=== PATIENT | male | born 1960 | race Caucasian/White ===

== ENCOUNTER 2017-11-26 13:42 | Emergency (ER) | END 2017-11-26 18:21 | disposition home or self-care (01) ==

== ENCOUNTER 2017-12-02 20:48 | Inpatient (IN) | END 2017-12-05 17:50 | disposition home or self-care (01) | DRG 378 ==

== ENCOUNTER 2018-02-22 11:17 | Emergency (ER) | payer OTHER ==
[~2018-02-22] VITALS: Ht 167.6 cm; Wt 73.3 kg
[~2018-02-22 11:17] MED LIST: ALBU18HF INHALATION; AMLO2.5T78 PO; ATOR20TA38 PO; FER325 PO; GABA300C16 PO; GLIP10TA14 PO; OMEP20CA16 PO; PANT40TA3 PO; SITA50TA2 PO
[2018-02-22 11:23] VITALS: BP 135/85; PULSE 87; RESP 20; Ht 167.6 cm; Wt 73.3 kg
[2018-02-22] MEDS ORDERED: ALBU18HF INHALATION (15:26)
[2018-02-22] MEDS ORDERED: BECL10.6 IH (15:27)
--- NOTE | 2018-02-22 21:01 | ERD ---
ER Documentation Chief Complaint Chief Complaint Complains of a cough x 3 days ROS All systems reviewed and are negative except as per history of present illness. Medications Home Meds Active Scripts Beclomethasone Dipropionate (Qvar Redihaler (40 MCG)) 10.6 Gm Hfa.aeroba, 10.6 GM IH BID for cough/shortness of breath, #1 INH Prov:DIAN SANDOVAL DO 02/22/18 Albuterol Sulfate* (Ventolin HFA*) 18 Gm Hfa.aer.ad, 2 PUFF INHALATION Q4H PRN for prn, #1 INHALER Prov:DIAN SANDOVAL DO 02/22/18 Pantoprazole* (Protonix*) 40 Mg Tablet., 40 MG PO BID, #60 TAB Prov:JADIEL VILLANUEVA NP 12/05/17 Amlodipine Besylate* (Amlodipine Besylate*) 2.5 Mg Tablet, 2.5 MG PO DAILY, #30 TAB Prov:JADIEL VILLANUEVA NP 12/05/17 Sitagliptin* (Januvia*) 50 Mg Tablet, 50 MG PO DAILY, #30 TAB Prov:JADIEL VILLANUEVA EQUIPMENT ENGINEERING TECHNICIAN 12/05/17 Albuterol Sulfate* (Ventolin HFA*) 18 Gm Hfa.aer.ad, 2 PUFF INHALATION Q4H, #1 INHALER Prov:LEVY RUSHING MD 11/26/17 Reported Medications Omeprazole* (Omeprazole*) 20 Mg Capsule.dr, 20 MG PO DAILY 12/02/17 Gabapentin* (Gabapentin*) 300 Mg Capsule, 300 MG PO DAILY PRN for NOTE, #60 CAP neuropathy 11/26/17 Glipizide* (Glipizide*) 10 Mg Tablet, 10 MG PO AC BREAKFAST DINNER, TAB 11/26/17 Atorvastatin Calcium* (Atorvastatin Calcium*) 20 Mg Tablet, 20 MG PO QHS 11/26/17 Ferrous Sulfate* (Ferrous Sulfate*) 325 Mg Tabec, 325 MG PO DAILY, TAB 11/26/17 Allergies Allergies: Coded Allergies: No Known Allergy (Unverified , 11/26/17) PMhx/Soc History of Surgery: Yes (appendectomy, toe amputation, left knee replacement) Anesthesia Reaction: No Hx Neurological Disorder: No Hx Respiratory Disorders: Yes (chronic cough) Hx Cardiac Disorders: Yes (HTN, HLD,) Hx Psychiatric Problems: No Hx Miscellaneous Medical Probl: No Hx Alcohol Use: No Hx Substance Use: No Hx Tobacco Use: Yes Smoking Status: Current every day smoker Physical Exam Vitals Vital Signs Date Temp Pulse Resp B/P (MAP) Pulse Ox O2 O2 Flow FiO2 Time Delivery Rate 02/22/18 97.4 87 20 135/85 99 11:23 (102) Physical Exam Const: No acute distress Head: Atraumatic Eyes: Normal Conjunctiva ENT: Normal External Ears, Nose and Mouth. Neck: Full range of motion. No meningismus. Resp: Clear to auscultation bilaterally Cardio: Regular rate and rhythm, no murmurs Abd: Soft, non tender, non distended. Normal bowel sounds Skin: No petechiae or rashes Back: No midline or flank tenderness Ext: No cyanosis, or edema Neur: Awake and alert Psych: Normal Mood and Affect Result Diagram: 02/22/18 1422 02/22/18 1422 Results 24 hrs Laboratory Tests Test 02/22/18 14:22 White Blood Count 7.7 10^3/ul Red Blood Count 4.13 10^6/ul Hemoglobin 12.9 g/dl Hematocrit 39.1 % Mean Corpuscular Volume 94.7 fl Mean Corpuscular Hemoglobin 31.2 pg Mean Corpuscular Hemoglobin Concent 33.0 g/dl Red Cell Distribution Width 13.5 % Platelet Count 216 10^3/UL Mean Platelet Volume 11.0 fl Immature Granulocytes % 0.300 % Neutrophils % 59.5 % Lymphocytes % 27.0 % Monocytes % 9.9 % Eosinophils % 2.7 % Basophils % 0.6 % Nucleated Red Blood Cells % 0.0 /100WBC Immature Granulocytes # 0.020 10^3/ul Neutrophils # 4.6 10^3/ul Lymphocytes # 2.1 10^3/ul Monocytes # 0.8 10^3/ul Eosinophils # 0.2 10^3/ul Basophils # 0.1 10^3/ul Nucleated Red Blood Cells # 0.0 10^3/ul Sodium Level 139 mmol/L Potassium Level 5.2 mmol/L Chloride Level 108 mmol/L Carbon Dioxide Level 25 mmol/L Anion Gap 6 Blood Urea Nitrogen 23 mg/dl Creatinine 2.22 mg/dl Est Glomerular Filtrat Rate mL/min 30 mL/min Glucose Level 113 mg/dl Calcium Level 9.1 mg/dl Total Bilirubin 0.1 mg/dl Direct Bilirubin 0.00 mg/dl Indirect Bilirubin 0.1 mg/dl Aspartate Amino Transf (AST/SGOT) 27 IU/L Alanine Aminotransferase (ALT/SGPT) 12 IU/L Alkaline Phosphatase 128 IU/L Total Protein 8.0 g/dl Albumin 3.8 g/dl Globulin 4.20 g/dl Albumin/Globulin Ratio 0.90 Departure Diagnosis: Primary Impression: Cough Condition: Fair Patient Instructions: Cough, Chronic, Uncertain Cause, (Adult) Referrals: [facility] (PCP) Additional Instructions: Llame al doctor MAANA y veronica sandi ADENIKE PARA DENTRO DE 1-2 KOVACS.Dgale a la secretaria que nosotros le instruimos hacer esta adenike.Avise o llame si abreu condicin se empeora antes de la adenike. Regresa aqui si peor o no mejor. DIAN SANDOVAL DO Feb 22, 2018 21:01
== END 2018-02-22 15:31 | disposition home or self-care (01) ==
LOC: FTE 11:17
DX: R05 Cough (principal); I10 Essential (primary) hypertension; F17.210 Nicotine dependence, cigarettes, uncomplicated; Z79.84 Long term (current) use of oral hypoglycemic drugs; Z96.652 Presence of left artificial knee joint
CPT/HCPCS: 71046; 80053; 85025; Z7502

== ENCOUNTER 2018-06-12 18:49 | Emergency (ER) | payer OTHER ==
[~2018-06-12] VITALS: Ht 167.6 cm; Wt 75.2 kg
[~2018-06-12 18:49] MED LIST changes: +BECL10.6 IH
[2018-06-12 19:09] VITALS: BP 132/80; PULSE 100; RESP 16; Ht 167.6 cm; Wt 75.2 kg
[2018-06-12] MEDS ORDERED: KETOROLAC 30 MG INJ IM STA (23:11)
--- NOTE | 2018-06-12 23:18 | ERD ---
ER Documentation Chief Complaint Chief Complaint LOWER BACK X 4 DAYS HPI This is a 4-year-old male patient who presents to the emergency room with complaint of left lower lumbar pain that started 4 days ago and increased in intensity 2 days ago while carrying a 50 pound bag of fruit that he says the pain was so severe it brought him to his knee. Describes it as very sharp, nonradiating, no paresthesia, no difficulty with urination, history of diabetes. No prior history of back pain, ROS All systems reviewed and are negative except as per history of present illness. Medications Home Meds Active Scripts Cyclobenzaprine Hcl* (Cyclobenzaprine Hcl*) 10 Mg Tablet, 10 MG PO QHS, #10 TAB Prov:JAYLON ROBLERO NP 06/13/18 Ibuprofen* (Motrin*) 600 Mg Tab, 600 MG PO Q6 for back pain for 30 Days, #30 TAB Prov:JAYLON ROBLERO NP 06/13/18 Beclomethasone Dipropionate (Qvar Redihaler (40 MCG)) 10.6 Gm Hfa.aeroba, 10.6 GM IH BID for cough/shortness of breath, #1 INH Prov:DIAN SANDOVAL DO 02/22/18 Albuterol Sulfate* (Ventolin HFA*) 18 Gm Hfa.aer.ad, 2 PUFF INHALATION Q4H PRN for prn, #1 INHALER Prov:DIAN SANDOVAL DO 02/22/18 Pantoprazole* (Protonix*) 40 Mg Tablet., 40 MG PO BID, #60 TAB Prov:JADIEL VILLANUEVA NP 12/05/17 Amlodipine Besylate* (Amlodipine Besylate*) 2.5 Mg Tablet, 2.5 MG PO DAILY, #30 TAB Prov:JADIEL VILLANUEVA NP 12/05/17 Sitagliptin* (Januvia*) 50 Mg Tablet, 50 MG PO DAILY, #30 TAB Prov:JADIEL VILLANUEVA NP 12/05/17 Albuterol Sulfate* (Ventolin HFA*) 18 Gm Hfa.aer.ad, 2 PUFF INHALATION Q4H, #1 INHALER Prov:LEVY RUSHING MD 11/26/17 Reported Medications Omeprazole* (Omeprazole*) 20 Mg Capsule., 20 MG PO DAILY 12/02/17 Gabapentin* (Gabapentin*) 300 Mg Capsule, 300 MG PO DAILY PRN for NOTE, #60 CAP neuropathy 11/26/17 Glipizide* (Glipizide*) 10 Mg Tablet, 10 MG PO AC BREAKFAST DINNER, TAB 11/26/17 Atorvastatin Calcium* (Atorvastatin Calcium*) 20 Mg Tablet, 20 MG PO QHS 11/26/17 Ferrous Sulfate* (Ferrous Sulfate*) 325 Mg Tabec, 325 MG PO DAILY, TAB 11/26/17 Allergies Allergies: Coded Allergies: No Known Allergy (Unverified , 11/26/17) PMhx/Soc History of Surgery: Yes (appendectomy, toe amputation, left knee replacement) Anesthesia Reaction: No Hx Neurological Disorder: No Hx Respiratory Disorders: Yes (chronic cough) Hx Cardiac Disorders: Yes (HTN, HLD,) Hx Psychiatric Problems: No Hx Miscellaneous Medical Probl: No Hx Alcohol Use: No Hx Substance Use: No Hx Tobacco Use: Yes Smoking Status: Never smoker FmHx Family History: No diabetes, No coronary disease, No other Physical Exam Vitals Vital Signs Date Temp Pulse Resp B/P (MAP) Pulse Ox O2 O2 Flow FiO2 Time Delivery Rate 06/12/18 97.5 100 16 132/80 100 19:09 (97) Physical Exam Const: No acute distress Head: Atraumatic Eyes: Normal Conjunctiva, PERRL ENT: Normal External Ears, Nose and Mouth. Neck: Full range of motion. No meningismus. No lymphadenopathy Resp: Clear to auscultation bilaterally Cardio: Regular rate and rhythm, no murmurs Abd: Soft, non tender, non distended. Normal bowel sounds Skin: No petechiae or rashes Back Exam: Skin: No bruising or rash Compartments: Soft Motor: limitetd ROM of back and hips, normal ROM of knee/ankle/foot Sensation: Intact to light touch throughout Bones: Midline tenderness over spine, no masses, no crepitus, no step-offs Ext: No cyanosis, or edema Neur: Awake and alert Psych: Normal Mood and Affect Results 24 hrs Laboratory Tests Test 06/12/18 23:22 Bedside Urine pH (LAB) 5.5 Bedside Urine Protein (LAB) 3+ Bedside Urine Glucose (UA) 0.50% Bedside Urine Ketones (LAB) Negative Bedside Urine Blood Trace-lysed Bedside Urine Nitrite (LAB) Negative Bedside Urine Leukocyte Esterase (L Negative Current Medications Medications Dose Sig/Emiliano Start Time Status Last (Trade) Ordered Route PRN Stop Time Admin Dose Reason Admin Ketorolac 30 mg ONCE STAT 06/12/18 DC 06/12/18 Tromethamine IM 23:11 23:23 (Toradol) 06/12/18 23:13 Diazepam 5 mg ONCE ONCE 06/12/18 DC 06/12/18 (Valium) PO 23:30 23:23 06/12/18 23:31 Procedures/MDM This is a 58 year-old male patient who presents to the emergency room with back pain x4 days. ED COURSE: The patient was stable throughout ED course. I kept the patient and/or family informed of laboratory and diagnostic imaging results throughout the ED course. DIAGNOSTIC IMAGING: IMPRESSION: 1. Grade 1 anterior spondylolisthesis of L5 on S1 with bilateral L5 spondylolysis. 2. Diffuse enthesopathy most prominent at L3-4. 3. Aortic atherosclerosis. Read by radiologist. MEDICATIONS GIVEN: Toradol, Valium Patient tolerated medication well with no adverse reactions. Patient reported improvement in pain. MDM: 01:02 patient states he is feeling improved after Toradol and Valium. Patient ambulating freely in waiting room, nad. Patient given instructions on self-care and follow-up. Patient's musculoskeletal symptoms have stabilized while they have been evaluated in the department and are appropriate for outpatient work up. No evidence of cauda equina, cord compression, infiltrative, or infectious etiology. DISPOSITION: The patient has been discharge home to follow-up with community physician. Departure Diagnosis: Primary Impression: Back pain Referrals: [facility] Additional Instructions: Thank you very much for allowing us to participate in your care. Your health and safety is our top priority at [facility]. Call your primary care doctor TOMORROW for an appointment during the next 2-4 days and bring all the information and medications prescribed. Have prescriptions filled and follow precisely the directions on the label. If the symptoms get worse and your provider is unavailable, return to the Emergency Department immediately. JAYLON ROBLERO NP Jun 12, 2018 23:18
[2018-06-12] MEDS ORDERED: DIAZEPAM 5 MG TAB PO ONE (23:30)
[2018-06-13] MEDS ORDERED: IBUP-1542 PO (01:06)
[2018-06-13] MEDS ORDERED: CYCL10TA7 PO (01:06)
== END 2018-06-13 02:16 | disposition home or self-care (01) ==
LOC: FTE 18:49
DX: M54.5 Low back pain (principal); I10 Essential (primary) hypertension; E78.5 Hyperlipidemia, unspecified
CPT/HCPCS: 72100; 81003; 96372; J1885; Z7502; Z7610

== ENCOUNTER 2018-06-22 14:50 | Emergency (ER) | payer OTHER ==
[~2018-06-22] VITALS: Ht 170.2 cm; Wt 76.0 kg
[~2018-06-22 14:50] MED LIST changes: +CYCL10TA7 PO; +IBUP-1542 PO
[2018-06-22 14:52] VITALS: Ht 170.2 cm; Wt 76.0 kg
--- NOTE | 2018-06-22 15:15 | ERD ---
ER Documentation Chief Complaint Chief Complaint sent by pcp - increase potassium level HPI 58-year-old man complains of 1 day of generalized weakness, had his blood drawn yesterday and was told to go to the ER due to hyperkalemia. Patient denies history of hyperkalemia and is not a dialysis patient but he does have a history of kidney problems and chronic creatinine elevation with reduced GFR. Patient denies dysuria or decreased urinary frequency, no fevers or chills, no abdominal pain, no complaints of chest pain or shortness of breath, no palpitations. ROS All systems reviewed and are negative except as per history of present illness. Medications Home Meds Active Scripts Cyclobenzaprine Hcl* (Cyclobenzaprine Hcl*) 10 Mg Tablet, 10 MG PO QHS, #10 TAB Prov:JAYLON ROBLERO SOCIAL WORK ASSISTANT 06/13/18 Reported Medications Amlodipine Besylate* (Amlodipine Besylate*) 2.5 Mg Tablet, 2.5 MG PO DAILY, #30 TAB 06/22/18 Tamsulosin Hcl* (Flomax*) 0.4 Mg Cap.er.24h, 0.4 MG PO HS, CAP 06/22/18 Lisinopril* (Lisinopril*) 5 Mg Tablet, 5 MG PO DAILY, #30 TAB 06/22/18 Glipizide* (Glipizide*) 10 Mg Tablet, 10 MG PO AC BREAKFAST DINNER, TAB 06/22/18 Discontinued Reported Medications Omeprazole* (Omeprazole*) 20 Mg Capsule.dr, 20 MG PO DAILY 12/02/17 Gabapentin* (Gabapentin*) 300 Mg Capsule, 300 MG PO DAILY PRN for NOTE, #60 CAP neuropathy 11/26/17 Glipizide* (Glipizide*) 10 Mg Tablet, 10 MG PO AC BREAKFAST DINNER, TAB 11/26/17 Atorvastatin Calcium* (Atorvastatin Calcium*) 20 Mg Tablet, 20 MG PO QHS 11/26/17 Ferrous Sulfate* (Ferrous Sulfate*) 325 Mg Tabec, 325 MG PO DAILY, TAB 11/26/17 Discontinued Scripts Ibuprofen* (Motrin*) 600 Mg Tab, 600 MG PO Q6 for back pain for 30 Days, #30 TAB Prov:JAYLON ROBLERO SOCIAL WORK ASSISTANT 06/13/18 Beclomethasone Dipropionate (Qvar Redihaler (40 MCG)) 10.6 Gm Hfa.aeroba, 10.6 GM IH BID for cough/shortness of breath, #1 INH Prov:DIAN SANDOVAL DO 02/22/18 Albuterol Sulfate* (Ventolin HFA*) 18 Gm Hfa.aer.ad, 2 PUFF INHALATION Q4H PRN for prn, #1 INHALER Prov:DIAN SANDOVAL DO 02/22/18 Pantoprazole* (Protonix*) 40 Mg Tablet.dr, 40 MG PO BID, #60 TAB Prov:JADIEL VILLANUEVA SOCIAL WORK ASSISTANT 12/05/17 Amlodipine Besylate* (Amlodipine Besylate*) 2.5 Mg Tablet, 2.5 MG PO DAILY, #30 TAB Prov:JADIEL VILLANUEVA SOCIAL WORK ASSISTANT 12/05/17 Sitagliptin* (Januvia*) 50 Mg Tablet, 50 MG PO DAILY, #30 TAB Prov:JADIEL VILLANUEVA SOCIAL WORK ASSISTANT 12/05/17 Albuterol Sulfate* (Ventolin HFA*) 18 Gm Hfa.aer.ad, 2 PUFF INHALATION Q4H, #1 INHALER Prov:LEVY RUSHING MD 11/26/17 Allergies Allergies: Coded Allergies: No Known Allergy (Unverified , 06/22/18) PMhx/Soc Esophagitis, gastritis, chronic cough, chronic kidney disease, anemia, diabetes mellitus, hypertension, right pulmonary nodule History of Surgery: Yes (appendectomy, toe amputation, left knee replacement) Anesthesia Reaction: No Hx Neurological Disorder: No Hx Respiratory Disorders: Yes (chronic cough) Hx Cardiac Disorders: Yes (HTN, HLD,) Hx Psychiatric Problems: No Hx Miscellaneous Medical Probl: No Hx Alcohol Use: No Hx Substance Use: No Hx Tobacco Use: Yes Physical Exam Vitals Vital Signs Date Temp Pulse Resp B/P (MAP) Pulse Ox O2 O2 Flow FiO2 Time Delivery Rate 06/22/18 97.0 90 20 145/97 100 Room Air 15:19 (113) 06/22/18 97.0 94 20 124/88 100 14:52 (100) Physical Exam GENERAL: Well-developed, well-nourished, well-hydrated, in no apparent distress, looks nontoxic in appearance HEENT: Moist mucous membranes, pink conjunctiva, no cervical spine tenderness or step-off deformities, no goiter, no jaundice or icterus, extraocular movements intact without pain. No submandibular induration, and no pharyngeal erythema NEURO: Alert and oriented 3, cranial nerves II through XII intact bilaterally, pupils equal round reactive to light, no focal deficits or facial asymmetry, sensation intact distally Strength 5/5 in upper and lower extremities butch aterally CARDIAC: Regular rate and rhythm, no murmurs rubs or gallops LUNGS: Clear bilaterally no wheezing crackles or stridor ABDOMEN: Soft nontender, no guarding, no rigidity, no rebound, no psoas sign no obturator sign. Normoactive bowel sounds SKIN: Warm and dry to touch, no abrasions, contusions, or hematomas, no lacerations, no ecchymosis, no target lesions, and without ulcers EXTREMITIES: No clubbing cyanosis or edema, calves are bilaterally symmetrical, no Homans sign, no popliteal cord sign. Distal pulses equal and bilateral PSYCH: Normal affect without agitation or irritability Result Diagram: 06/22/18 1518 06/22/18 1518 Results 24 hrs Laboratory Tests Test 06/22/18 15:18 White Blood Count 7.4 10^3/ul Red Blood Count 3.73 10^6/ul Hemoglobin 11.3 g/dl Hematocrit 34.3 % Mean Corpuscular Volume 92.0 fl Mean Corpuscular Hemoglobin 30.3 pg Mean Corpuscular Hemoglobin Concent 32.9 g/dl Red Cell Distribution Width 14.8 % Platelet Count 224 10^3/UL Mean Platelet Volume 10.3 fl Immature Granulocytes % 0.300 % Neutrophils % 59.7 % Lymphocytes % 27.9 % Monocytes % 10.5 % Eosinophils % 1.1 % Basophils % 0.5 % Nucleated Red Blood Cells % 0.0 /100WBC Immature Granulocytes # 0.020 10^3/ul Neutrophils # 4.4 10^3/ul Lymphocytes # 2.1 10^3/ul Monocytes # 0.8 10^3/ul Eosinophils # 0.1 10^3/ul Basophils # 0.0 10^3/ul Nucleated Red Blood Cells # 0.0 10^3/ul Sodium Level 142 mmol/L Potassium Level 5.3 mmol/L Chloride Level 114 mmol/L Carbon Dioxide Level 21 mmol/L Anion Gap 7 Blood Urea Nitrogen 51 mg/dl Creatinine 3.25 mg/dl Est Glomerular Filtrat Rate mL/min 20 mL/min Glucose Level 120 mg/dl Calcium Level 8.6 mg/dl Troponin I < 0.012 ng/ml Current Medications Medications Dose Sig/Emiliano Start Time Status Last (Trade) Ordered Route PRN Stop Time Admin Dose Reason Admin Albuterol 10 mg ONCE STAT 06/22/18 DC (Proventil INH 16:08 06/22/18 0.5% (Neb)) 16:09 Procedures/MDM IV line was established patient was placed on court monitor rhythm strip revealed a sinus rhythm at about 80 bpm with upright P and T waves. Patient was afebrile CBC was normal, electrolytes revealed only mild hyperkalemia 5.3 and a creatinine of 3.3, troponin negative. EKG performed, read by me: 88 bpm, normal sinus rhythm, normal axis, no acute ST segment changes, narrow QRS complex, with good R-wave progression in precordial leads. For mild hyperkalemia administered albuterol 10 mg via nebulizer, although I suspect his potassium to fall within normal limits uneventfully and without any further intervention. 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 I also cautioned him against eating a high salt or high potassium diet Differential diagnoses considered, included but not limited to acute coronary syndrome, pulmonary embolism, aortic dissection, abdominal aortic aneurysm, sepsis, stroke, meningitis, encephalitis, pneumonia, appendicitis, cholecystitis, bowel obstruction, pyelonephritis, nephrolithiasis, cystitis, as well as metabolic, hematologic, and electrolyte abnormalities. As well as abscess, cellulitis, fractures, and dislocations. Patient feels much better at this time, and vital signs are normal, symptoms have improved. I did give strict instructions to return to the ED if symptoms continue or worsen, patient will otherwise follow-up with primary care physician. Patient understood instructions and agreed to plan. Disclaimer: Inadvertent spelling and grammatical errors are likely due to EHR/dictation software use and do not reflect on the overall quality of patient care. Also, please note that the electronic time recorded on this note does not necessarily reflect the actual time of the patient encounter. Departure Diagnosis: Primary Impression: Chronic renal insufficiency Chronic kidney disease stage: unspecified stage Qualified Codes: N18.9 - Chronic kidney disease, unspecified Additional Impression: Acute hyperkalemia Condition: INDER Ross MD June 22, 2018 15:15
[2018-06-22] MEDS ORDERED: GLIP10TA14 PO (15:45)
[2018-06-22] MEDS ORDERED: AMLO2.5T78 PO (15:46)
[2018-06-22] MEDS ORDERED: TAMS-14 PO (15:46)
[2018-06-22] MEDS ORDERED: LISI-313 PO (15:46)
[2018-06-22] MEDS ORDERED: ALBUTEROL 0.5% (NEB) 2.5 MG/0.5 ML AMP INH STA (16:08)
[2018-06-22 18:11] VITALS: BP 179/80; PULSE 75; RESP 17
== END 2018-06-22 18:17 | disposition home or self-care (01) ==
LOC: E/R 14:50
DX: N18.9 Chronic kidney disease, unspecified (principal); E11.22 Type 2 diabetes mellitus with diabetic chronic kidney disease; I12.9 Hypertensive chronic kidney disease with stage 1 through stage 4 chronic kidney disease, or unspecified chronic kidney disease; E87.5 Hyperkalemia; R05 Cough; Z79.84 Long term (current) use of oral hypoglycemic drugs; Z87.891 Personal history of nicotine dependence; Z96.652 Presence of left artificial knee joint
CPT/HCPCS: 36415; 80048; 84484; 85025; 94644; Z7502; Z7610